=== PATIENT | male | born 1960 | race Caucasian/White ===

== ENCOUNTER 2023-03-24 16:52 | Outpatient (RCR) | payer OTHER, SELFPAY ==
--- NOTE | 2023-03-24 18:23 | HP.SP.EV_ITS ---
History History Date of Eval: 03/24/23 Attending Doctor: JAMIE BROWN Referring Doctor: JAMIE BROWN Reason for Referral: MOUTH BREATHING,ACTIVE TONGUE Previous speech therapy: No Other Relevant Medical History/Diagnoses/Surgery: Sleep apnea. Patient had a recent study and awaiting results. Pain Is pain an issue with your current prescribed condition?: No Personal Preferred language: [place] * Pediatric & Adult patients Objective Oralfacial Myology Breathing Breathing: Combination Jaw Jaw Stability: WNL Tongue/Mandible Differentiation Horizontal: WNL Lateralization: WNL Vertical: WNL Tonsils Tonsils: Absent Lips Lips: Competent Posture: Combination Tongue Resting Position: Alveolar ridge Swallow Swallow: Normal Articulation Additional: No deficits in articulation. 100% intelligible. Additional Addtional Information: Patient and report that intermittently he will stick his tongue out while speaking or at rest. This was not observed during this evaluation. Adult Objective Oral Motor Oral Status Dentition: Upper Dentures Additional: lower partials Labial Impairment: WNL Closure: WNL Involuntary Movement noted: No Lingual Impairment: WNL Protrusion: WNL Lateralization: WNL Involuntary Movement: No Jaw Impairment: WNL Involuntary Movement: No Respiratory Status Respiratory Status: Room Air Swallowing Performance Scale Swallowing Performance Scale Swallowing Performance Scale Result: 1 Normal Reference: Neuro-QoL instrument Radiation Oncology Patient Plan Plan Plan: No further therapy is warranted at this time. No medical reason as to why he has an open mouth posture. Educated patient on creating a new habit and reminders to help facilitate this. Patient is in agreement with no treatment at this time. His is active in his care and willing to help remind this patient. No orofacial myology disorder diagnosed. Recommendations MBS: No Treatment Warranted: No Education Patient has Indicated that the Following Identified Educational Needs: None The Patient has indicated that they have no educational or learning abilities that may effect their care.: Yes Patient Instruction Patient Education: Diagnosis Person Taught: Patient and Significant Other Teaching Method: Discussion Response to teaching: Return demonstration and Verbalize understanding
== END 2023-03-24 23:59 | disposition home or self-care (01) ==
LOC: SP 16:52
DX: R06.5 Mouth breathing (principal); K14.8 Other diseases of tongue
CPT/HCPCS: 92610